=== PATIENT | female | born 1970 | race Caucasian/White ===

== ENCOUNTER 2019-04-13 21:37 | Emergency (ER) | payer BC, OTHER ==
[2019-04-13 22:01] VITALS: BP 109/86
[2019-04-13] MEDS ORDERED: Tetan/Diph/Pertus SYR(Tdap)* 0.5 ML SYR(BOOSTRIX) use SYR IM ONE (22:01)
[2019-04-13] MEDS ORDERED: Amoxicillin/Clavulanate TAB* 875 MG PO ONE (22:13)
--- NOTE | 2019-04-13 22:31 | UC ---
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 UNKNOWN VACCINATION STATUS OF THE ANIMAL BUT PATIENT STATES SHE CAN FIND OUT TOMORROW WHEN THE OFFICE REOPENS. LAST TETANUS 12/2018. - History of Current Complaint Chief Complaint: UCBiteInjury Stated Complaint: DOG BITE Time Seen by Provider: 04/13/19 21:38 Hx Obtained From: Patient, Family/Teaching Pastor - Hx Last Menstrual Period: IUD Severity Currently: Moderate Severity Initially: Moderate Pain Intensity: 4 Pain Scale Used: 0-10 Numeric Onset/Duration: Sudden Onset, Lasting Hours - 1 HOUR Type of Bite: Pet Has Animal Been Immunized?: Unknown Character: Abrasion/Laceration Aggravating Factor(s): Nothing Alleviating Factor(s): Nothing - Allergies/Home Medications Allergies/Adverse Reactions: Allergies Allergy/AdvReac Type Severity Reaction Status Date / Time hydrocodone Allergy Vomiting Verified 04/13/19 22:01 PMH/Surg Hx/FS Hx/Imm Hx Cardiovascular History: Cardiac Disease - WPW - Surgical History Surgical History: Yes Surgery Procedure, Year, and Place: ABLATION FOR WPW, CARPAL TUNNEL, ANKLE SURGERY - Family History Known Family History: Negative: Cardiac Disease, Hypertension - Social History Alcohol Use: Occasionally Substance Use Type: None Smoking Status (MU): Never Smoked Tobacco - Immunization History Most Recent Tetanus Shot: UNSURE Review of Systems All Other Systems Reviewed And Are Negative: Yes Constitutional: Positive: Negative Skin: Positive: Other - LACERATION Respiratory: Positive: Negative Cardiovascular: Positive: Negative Gastrointestinal: Positive: Negative Musculoskeletal: Positive: Negative Physical Exam Triage Information Reviewed: Yes Appearance: Well-Appearing, No Pain Distress, Well-Nourished Vital Signs: Initial Vital Signs Temp 98.1 F 04/13/19 21:55 Pulse 63 04/13/19 21:55 Resp 20 04/13/19 21:55 BP 109/86 04/13/19 21:55 Pulse Ox 97 04/13/19 21:55 Vital Signs Reviewed: Yes Eyes: Positive: Conjunctiva Clear ENT: Positive: Hearing grossly normal Neck: Positive: Supple Respiratory: Positive: No respiratory distress, No accessory muscle use Cardiovascular: Positive: Pulses Normal Abdomen Description: Positive: Soft Musculoskeletal: Positive: ROM Intact, No Edema Neurological: Positive: Alert Psychological: Positive: Age Appropriate Behavior Skin: Positive: Other - 2CM LINEAR LACERATION OVERLYING LATERAL ASPECT OF [place] OF LEFT 3RD FINGER Bite Injury Course/Dx - Course Course Of Treatment: DISCUSSED CLOSURE VERSUS LEAVING WOUND OPEN GIVEN POSSIBILITY OF DEVELOPING INFECTION. SKIN EDGES ARE FAIRLY WELL APPROXIMATED WHEN FINGER IS STRAIGHT. NONSTICK BANDAGE AND TUBE GAUZE APPLIED. PATIENT DISPENSED A FINGER SPLINT TO USE TOMORROW. WOUND WILL HEAL BY SECONDARY INTENTION. AUGMENTIN TWICE DAILY FOR 10 DAYS. TDAP BOOSTED TODAY. FOLLOW-UP WITH HEALTH DEPARTMENT. - Differential Dx/Diagnosis Provider Diagnosis: Open wound of finger of left hand due to dog bite Discharge ED - Sign-Out/Discharge Documenting (check all that apply): Patient Departure All imaging exams completed and their final reports reviewed: No Studies - Discharge Plan Condition: Stable Disposition: HOME Prescriptions: Amoxicillin/Clavulanate TAB* [Augmentin TAB 875*] 875 mg PO BID #18 tab Patient Education Materials: Animal Bite (ED) Referrals: Chanel Tompkins, MECHANICAL SPREADER OPERATOR [Primary Care Provider] - If Needed Additional Instructions: TAKE THE ANTIBIOTICS FOR THE FULL 10 DAYS. LOOK INTO THE VACCINATION STATUS OF THE DOG AND FOLLOW-UP WITH THE HEALTH DEPARTMENT. SEEK FOLLOW-UP IF YOU DEVELOP SPREADING REDNESS OF THE SKIN, PURULENT DRAINAGE, FEVER, INCREASED PAIN OR ANY OTHER CONCERNING SYMPTOMS. TETANUS IMMUNIZATION GIVEN (TDAP): You have been given an immunization against tetanus. Please record this in your records. In general, a booster is needed only once every 10 years. The tetanus shot protects against tetanus or "lockjaw," which is a complication of certain wound infections (the tetanus shot cannot protect against the actual infection). The immunization site may become warm and red due to local reaction. If this occurs, apply warm compresses and take aspirin or ibuprofen to reduce inflammation and discomfort. Return for evaluation if the reaction becomes severe. - Billing Disposition and Condition Condition: STABLE Disposition: Home
== END 2019-04-13 22:30 | disposition home or self-care (01) ==
LOC: UCEAST 21:37
DX: S61.253A Open bite of left middle finger without damage to nail, initial encounter (principal); W54.0XXA Bitten by dog, initial encounter; Y92.9 Unspecified place or not applicable; Z23 Encounter for immunization
CPT/HCPCS: 90471; 90715; 99213; A9270-GY; G0463